=== PATIENT | male | born 1970 | race Caucasian/White ===

== ENCOUNTER 2020-02-18 20:01 | Emergency (ER) | payer OTHER ==
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
== END 2020-02-18 20:33 | disposition home or self-care (01) ==
LOC: MW.ED 20:01
DX: S91.051A Open bite, right ankle, initial encounter (principal); W54.0XXA Bitten by dog, initial encounter; Y92.410 Unspecified street and highway as the place of occurrence of the external cause
CPT/HCPCS: 99282; 99283

== ENCOUNTER 2023-10-31 08:39 | Day surgery (SDC) | payer BC ==
[2023-10-31] MEDS: Lactated Ringers 1,000 ML IV SCH (08:58)
[2023-10-31] MEDS ORDERED: propofoL 50 ML ONE (09:33)
[2023-10-31] MEDS ORDERED: Lactated Ringers 1,000 ML IV SCH (10:30)
== END 2023-10-31 10:50 | disposition home or self-care (01) ==
LOC: MW.SDS 08:39
PROVIDERS: ATTEND Surgery
DX: K57.30 Diverticulosis of large intestine without perforation or abscess without bleeding (principal); J06.9 Acute upper respiratory infection, unspecified; J68.3 Other acute and subacute respiratory conditions due to chemicals, gases, fumes and vapors; Z87.891 Personal history of nicotine dependence; Z83.719 Family history of colon polyps, unspecified; Z79.899 Other long term (current) drug therapy
CPT/HCPCS: 45378; J2704; J7120